=== PATIENT | female | born 1995 | race Caucasian/White ===

== ENCOUNTER → 2025-05-13 13:01 | Outpatient (CLI) | payer OTHER, SELFPAY ==
--- NOTE | 2025-05-13 13:05 | DI.MRI.S_ITS ---
PROCEDURE: MR PELVIS WO CON INDICATIONS: SHARP PAIN TECHNIQUE: Noncontrast coronal and axial T1 spin echo and STIR through the bony pelvis. COMPARISON: None. FINDINGS: Image quality: Diagnostic Bones: No acute pelvic ring disruption. The sacroiliac joints and pubic symphysis appear intact. No acute hip fracture. No hip dislocation. Unremarkable partially visualized lower lumbar spine. Soft tissues: Moderate edema is seen in the right gluteal region, surrounding the hamstring origin and proximal sciatic nerve. There is only mild tendinopathy at the gluteus medius and minimus insertion. Intrapelvic structures are not well assessed on this study, no gross abnormalities identified. Tampon is in place. IMPRESSION: Moderate edema in the right gluteal region, surrounding the proximal sciatic nerve, which has mildly abnormal signal. Correlate with any neurologic symptoms and any focal injury. Only mild tendinopathy changes are seen in the adjacent gluteus medius/minimus insertion and hamstring origin, likely not the source of the inflammation. Dictated by: Latrell Zazueta M.D. on 05/13/2025 at 19:33 Approved by: Latrell Zazueta M.D. on 05/13/2025 at 19:38
== END ==
DX: M25.551 Pain in right hip (principal); M25.451 Effusion, right hip
CPT/HCPCS: 72195